=== PATIENT | female | born 1945 | race Caucasian/White ===

== ENCOUNTER 2017-01-21 08:29 | Day surgery (SDC) | payer MEDICARE, BC ==
[2017-01-21] VITALS (7 sets, daily range): BP systolic 109–131; BP diastolic 53–72; PULSE 54–68; RESP 16–24; TEMP 97.9–98.3; O2SAT 96–100; Ht 162.6 cm; Wt 75.7 kg
[~2017-01-21] VITALS: Ht 162.6 cm; Wt 75.7 kg
[~2017-01-21 08:29] MED LIST: CALC1TAB42 PO; CETI10TA56 PO; LEVO75TA57 PO; LIDOCAINE 1% (10mg/ml) 2ml SDV INJ ONE; LR 1,000 ML IV SCH; MULT-1198
--- OUTSIDE RECORDS SUMMARY | 2017-01-21 08:33 | XMS REPORT | Continuity of Care Document ---
Author Author [facility] Organization [facility] Address Unknown Phone Unavailable Allergies Medications Problems Procedures Results Encounters ACCT No. Visit Date/Time Discharge Status Pt. Type Provider Facility Loc./Unit Complaint [id number] 09/19/2013 09:03:00 09/19/2013 23 :59:59 CLS Outpatient [id number] 08/22/2013 12:08:00 08/22/2013 23 :59:59 CLS Outpatient [id number] 08/14/2013 11:16:00 08/14/2013 23 :59:59 CLS Outpatient
--- OUTSIDE RECORDS SUMMARY | 2017-01-21 08:33 | XMS REPORT | Continuity of Care Document ---
Author Author [facility] Organization [facility] Address Unknown Phone Unavailable Support Name Relationship Address Phone ELYSIA LEI Jazmín MEANS Caregiver [address] [place] [address] Unavailable JOSH ELLIS MD Caregiver [address] [place] [address] [place] [address] Unavailable SOUN WOLF Next Of Kin [address] [place], [place] [id number] Insurance Providers Guarantor Amena Wolf Address [address] [place] [address] Email DENIED/NO TO PT PORT Payer [employer] Plan 65 Policy Number [id number] Subscriber's Name Amena Wolf Relationship 18 Self Group Number [id number] Payer Medicare Policy Number [id number] Subscriber's Name Amena Wolf Relationship 18 Self Chief Complaint and Reason for Visit Chief Complaint Cough,Fever,Flu,URI Reason for Visit [id number] Problems Active Problems Medical Problem Onset Date Status SVT-CONVERTED Unknown Acute Past Problems Medical Problem Onset Date Influenza B Unknown Medications Current Home Medications Medication Dose Units Route Directions Days Qty Instructions Start Date Calcium Citrate/Vitamin D3 (Citracal 250 Mg + D Tablet) 1 Tab Tablet 1 Tab Oral Twice A Day 11/28/10 Cetirizine Hcl (Zyrtec) 10 Mg Tablet 10 Mg Oral 1/2 Tab Prn 02/02 Levothyroxine Sodium (Synthroid) 75 Mcg Tablet 75 Mcg Oral Daily 11/28/10 Multivitamin (Multi Vitamin Daily) 1 Each Tablet 01/03/17 Oseltamivir Phosphate (Tamiflu) 75 Mg Capsule 75 Mg Oral Twice A Day 5 Days [address] Dev Parmar [facility] [address] [phone] 01/03/17 Social History Social History Problem Response Recorded Date/Time Onset Date Status Hx Alcohol Use No 08/18/2013 8:22pm Not Applicable Not Applicable Hospital Discharge Instructions No hospital discharge instructions. Plan of Care Discharge Date 01/03/17 1:37pm Disposition 01 DISCHARGED HOME, SELF-CARE Condition at Discharge Stable Instructions/Education Provided Influenza (ED) Prescriptions See Medication Section Referrals JOSH ELLIS MD Address: [address] [place] [address] DR [place], [place] [phone] Functional Status No functional status results. Allergies, Adverse Reactions, Alerts Allergen Type Severity Reaction Status Last Updated hydrocodone bit Allergy Intermediate N&V Active 01/03/17 triamcinolone acetonide Allergy Intermediate PALPITATIONS, DIZZY Active Codeine Allergy Intermediate NAUSEA Active 01/03/17 Acetaminophen Allergy Intermediate N&V Active 01/03/17 Tetracycline Allergy Mild HEART PALPITATIONS Active 08/18/13 Sulfamethoxazole Allergy Intermediate SEVERE HEADACHES Active 01/03/17 Trimethoprim Allergy Intermediate SEVERE HEADACHES Active 08/18/13 Immunizations Query Response on File Recorded Date/Time Hx Influenza Vaccination No 08/18/13 8:22pm Hx Pneumococcal Vaccination Y SEP 2010 08/18/13 8:22pm Hx Influenza Vaccination No 08/18/13 8:22pm Influenza Vaccine Hx NO 01/03/17 1:11pm Tetanus Diptheria Vaccine History UNSURE 01/03/17 1:11pm Vital Signs Acute Vital Signs Vital Response Date/Time Temperature (Fahrenheit) 98.7 deg F (96.8 - 99.1) 01/03/2017 1:05pm Temperature (Calculated Celsius) 37.52827 degrees C (36.0 - 37.3) 01/03/2017 1:05pm Pulse Rate (adult) 70 bpm (60 - 100) 01/03/2017 1:05pm Respiratory Rate 18 breaths/min (10 - 20) 01/03/2017 1:05pm O2 Sat by Pulse Oximetry 94 % (90 - 100) 01/03/2017 1:05pm Blood Pressure 121/71 mm Hg 01/03/2017 1:05pm Height (Inches) 64.00 inches 01/03/2017 1:05pm Weight (Kilograms) 78.900 kg 01/03/2017 1:05pm Body Mass Index (BMI) 29.0 01/03/2017 1:05pm Results No known relevant diagnostic tests, laboratory data and/or discharge summary. Procedures No known history of procedures. Encounters Encounter Location Arrival/Admit Date Discharge/Depart Date Attending Provider Departed Emergency Room [facility] 01/03/17 1:00pm 01/03/17 1: 37pm ELYSIA LEI RELIGION TEACHER Recent Diagnosis
[2017-01-21] MEDS ORDERED: FENTANYL 100mcg/2ml INJECTION ONE ×2 (10:30→10:47)
[2017-01-21] MEDS ORDERED: NALOXONE 0.4mg/ml INJECTION ONE (10:52)
--- NOTE | 2017-01-21 11:12 | ANESPO ---
Post-Op Note Date 01/21/17 Time: 11:10 Status Pt Participated in Evaluation: Pt participated in person Vital Signs Date Time Temp Pulse Resp B/P Pulse Ox O2 Delivery O2 Flow Rate FiO2 01/21/17 11:01 98.3 63 24 131/58 100 Mask 4.00 Respiratory Function: Airway patent, Regular respirations Cardiovascular Function: Regular pulse Mental Status: Alert/oriented Pain Level Intensity: 0 Hydration: Taking po fluids, IV infusing Complications during Recovery None apparent Post-Anesthesia Notes pt. did juvenal. well Follow-Up Instructions Instructions Per Surgeon Additional Information pt. doing well TIMUR BRO CRNA Jan 21, 2017 11:11
--- NOTE | 2017-01-21 11:17 | NUR ---
Nausea Pt states she is nauseated. [place] and saltine crackers provided. Refuses any medication for nausea.
--- NOTE | 2017-01-21 18:54 | OPNOTEF ---
DATE OF SERVICE 01/04/2017 SURGEON Mike Thornton MD PREOPERATIVE DIAGNOSIS Personal history for adenomatous colon polyps. POSTOPERATIVE DIAGNOSIS Personal history for adenomatous colon polyps, sigmoid diverticulosis. PROCEDURES Colonoscopy. ANESTHESIA MAC. BRIEF HISTORY/INDICATIONS Mrs. Ritchie is a 72-year-old female who presents today to [facility] to undergo a colonoscopy as a result of her prior history for adenomatous colon polyps in the past. It has been more than five years since her last endoscopic evaluation. For completeness please refer to notes included in the patient's chart. FINDINGS Upon colonoscopy the patient was found to have a moderate number of diverticulum within the sigmoid colon region. There was no evidence for angiodysplastic lesions, polyps, or ace malignancies. DESCRIPTION OF PROCEDURE After informed consent was obtained, the patient was brought to the endoscopy suite and placed on the tablet in the left lateral cubitus position. Patient subsequently underwent MAC anesthesia by the nurse nut dehydrator operator at my request. Formal time-out was then completed. Next, a digital examination was performed. Normal sphincter tone. No rectal masses were appreciated. An Olympus colonoscope was inserted in the anus and advanced to the lumen of the colon under direct visualization at all times until the cecum was ascertained. Triangulation of the tenia coli and ileocecal valve were identified. Scope was then slowly withdrawn again maintaining visualization of the lumen at all times. As stated above, the entire colon was without evidence for angiodysplastic lesions, polyps, or ace allergies. She was found to have a few scattered diverticulum within the sigmoid colon region. Once the colonoscope was withdrawn back to the rectal vault, a J maneuver was then performed. No worrisome perianal pathology was noted. Scope was allowed to straighten and withdrawn through the anal verge. Patient tolerated the procedure without difficulty and was sent back to the preop area in stable condition. Secondary to the absence of findings upon this colonoscopy and the fact that the patient has a prior history for adenomatous colon polyps in the past, I would recommend that she undergo a repeat colonoscopy once again at about a five-year interval. MADDI
== END 2017-01-21 12:39 | disposition home or self-care (01) ==
LOC: NSC 08:29
PROVIDERS: ATTEND Surgery
DX: Z12.11 Encounter for screening for malignant neoplasm of colon (principal); Z86.010 Personal history of colon polyps; K57.30 Diverticulosis of large intestine without perforation or abscess without bleeding; I34.1 Nonrheumatic mitral (valve) prolapse; R00.2 Palpitations; E78.5 Hyperlipidemia, unspecified; E07.9 Disorder of thyroid, unspecified; Z79.899 Other long term (current) drug therapy
CPT/HCPCS: G0105; J2310; J3010; J7120